=== PATIENT | female | born 1990 | race Caucasian/White ===

== ENCOUNTER 2018-01-12 11:05 | Emergency (ER) | payer MEDICAID ==
[2018-01-12 12:05] LABS: ADD MAN DIFF? NO
[2018-01-12 12:07] LABS: WHITE BLOOD COUNT 7.4 10^3/ul (4.8-10.8)
[2018-01-12 12:08] LABS: BASOPHILS % 0.4 % (0.0-2.0); EOSINOPHILS # 0.1 10^3/ul (0.0-0.5); EOSINOPHILS % 1.3 % (0.0-7.0); HEMATOCRIT 39.9 % (37.0-47.0); HEMOGLOBIN 13.4 g/dl (12.0-16.0); MEAN CORPUSCULAR HEMOGLOBIN 29.6 pg (29.0-33.0); MEAN CORPUSCULAR HGB CONC 33.6 g/dl (32.0-37.0); MEAN CORPUSCULAR VOLUME 88.3 fl (82.0-101.0); MONOCYTE # 0.7 10^3/ul (0.3-0.9); MONOCYTES % 9.3 % (0.0-11.0); NEUTROPHIL # 5.6 10^3/ul (1.6-7.5); NEUTROPHILS % 75.2 % (39.0-77.0); PLATELET COUNT 214 10^3/UL (140-415); RED BLOOD COUNT 4.52 10^6/ul (4.20-5.40); RED CELL DISTRIBUTION WIDTH 13.3 % (11.5-14.5)
[2018-01-12 12:16] LABS: ADD UMIC NO; UR ASCORBIC ACID 20 mg/dL (NEGATIVE); UR BILIRUBIN (Dip) NEGATIVE (NEGATIVE); UR BLOOD (Dip) NEGATIVE (NEGATIVE); UR CLARITY SLIGHTLY CLOUDY (CLEAR); UR COLOR YELLOW (YELLOW); UR GLUCOSE (Dip) 3+ mg/dL (NEGATIVE); UR KETONES (Dip) TRACE mg/dL (NEGATIVE); UR LEUKOCYTE ESTERASE (Dip) NEGATIVE Leu/ul (NEGATIVE); UR NITRITE (Dip) NEGATIVE (NEGATIVE); UR RBC 1 /HPF (0-5); UR SPECIFIC GRAVITY (Dip) 1.016 (1.003-1.030); UR SQUAMOUS EPITHELIAL CELL FEW /HPF (FEW); UR TOTAL PROTEIN (Dip) NEGATIVE (NEGATIVE); UR UROBILINOGEN (Dip) NEGATIVE (NEGATIVE); UR WBC 1 /HPF (0-5)
== END 2018-01-12 12:45 | disposition home or self-care (01) ==
LOC: FTE 11:05
DX: O26.892 Other specified pregnancy related conditions, second trimester (principal); R10.2 Pelvic and perineal pain; Z3A.15 15 weeks gestation of pregnancy
CPT/HCPCS: 36415; 76805; 81001; 81003; 84702; 85025; 86900; 86901; 99284-25

== ENCOUNTER 2018-05-08 12:48 | Outpatient (CLI) | payer MEDICAID ==
[2018-05-08 13:30] LABS: RUPTURE FETAL MEMBRANES NEGATIVE (NEGATIVE)
== END 2018-05-08 14:40 | disposition home or self-care (01) ==
LOC: OBT 12:48 → L-D 12:48 → OBT 14:40
DX: O60.03 Preterm labor without delivery, third trimester (principal); Z3A.32 32 weeks gestation of pregnancy
CPT/HCPCS: 76818; 84112

== ENCOUNTER 2018-06-12 13:26 | Outpatient (CLI) | payer MEDICAID ==
[2018-06-12 14:38] LABS: RUPTURE FETAL MEMBRANES NEGATIVE (NEGATIVE)
== END 2018-06-12 15:08 | disposition home or self-care (01) ==
LOC: OBT 13:26 → L-D 13:27 → OBT 15:08
DX: O42.92 Full-term premature rupture of membranes, unspecified as to length of time between rupture and onset of labor (principal); Z3A.37 37 weeks gestation of pregnancy
CPT/HCPCS: 76818; 84112

== ENCOUNTER 2018-07-02 11:07 | Inpatient (IN) | payer MEDICAID ==
[2018-07-02] MEDS: LACTATED RINGER'S 1,000 ML IV* ×2 (13:00→21:56)
[2018-07-02] MEDS ORDERED: BUTORPHANOL 1 MG INJ IV (13:00)
[2018-07-02] MEDS ORDERED: CARBOPROST 250 MCG INJ IM (13:00)
[2018-07-02] MEDS ORDERED: METHYLERGONOVINE 0.2 MG INJ IM (13:00)
[2018-07-02] MEDS ORDERED: BUTORPHANOL 2 MG INJ IV (13:00)
[2018-07-02] MEDS ORDERED: OXYTOCIN 30 UNITS/LR 500 ML IV (13:00)
[2018-07-02] MEDS ORDERED: MISOPROSTOL 200 MCG TAB PR (13:00)
[2018-07-02 13:07] LABS: ADD MAN DIFF? NO
[2018-07-02 13:10] LABS: WHITE BLOOD COUNT 6.1 10^3/ul (4.8-10.8)
[2018-07-02 13:10] LABS: BASOPHILS % 0.3 % (0.0-2.0); EOSINOPHILS # 0.1 10^3/ul (0.0-0.5); EOSINOPHILS % 1.8 % (0.0-7.0); HEMATOCRIT 41.4 % (37.0-47.0); HEMOGLOBIN 13.8 g/dl (12.0-16.0); LYMPHOCYTES # 1.2 10^3/ul (0.8-2.9); LYMPHOCYTES % 19.1 % (15.0-51.0); MEAN CORPUSCULAR HEMOGLOBIN 29.5 pg (29.0-33.0); MEAN CORPUSCULAR HGB CONC 33.3 g/dl (32.0-37.0); MEAN CORPUSCULAR VOLUME 88.5 fl (82.0-101.0); MEAN PLATELET VOLUME 12.3 fl (7.4-10.4); MONOCYTE # 0.7 10^3/ul (0.3-0.9); MONOCYTES % 11.6 % (0.0-11.0); NEUTROPHIL # 4.1 10^3/ul (1.6-7.5); NEUTROPHILS % 66.2 % (39.0-77.0); PLATELET COUNT 178 10^3/UL (140-415); RED BLOOD COUNT 4.68 10^6/ul (4.20-5.40)
[2018-07-02 13:13] LABS: PROTIME 12.2 Sec (11.9-14.9)
[2018-07-02 13:14] LABS: PARTIAL THROMBOPLASTIN TIME 29.1 Sec (23.0-35.0)
[2018-07-02] MEDS: MISOPROSTOL 50 MCG CAPSULE PO ×2 (16:46→21:16)
[2018-07-02 20:33] LABS: HEPATITIS B SURFACE ANTIGEN NEGATIVE (NEGATIVE)
[2018-07-02 21:01] LABS: RAPID PLASMA REAGIN NONREACTIVE (NR)
[2018-07-03] MEDS: MISOPROSTOL 50 MCG CAPSULE PO ×6 (01:00→21:00)
[2018-07-03] MEDS: LACTATED RINGER'S 1,000 ML IV* ×3 (06:23→19:52)
[2018-07-03] MEDS: OXYTOCIN 30 UNITS/LR 500 ML IV (16:24)
[2018-07-04] MEDS: MISOPROSTOL 50 MCG CAPSULE PO ×2 (01:00→05:00)
[2018-07-04] MEDS: LACTATED RINGER'S 1,000 ML IV* ×3 (04:07→20:47)
[2018-07-05] MEDS: OXYTOCIN 30 UNITS/LR 500 ML IV (02:57)
[2018-07-05] MEDS: LACTATED RINGER'S 1,000 ML IV* ×3 (04:51→21:12)
[2018-07-05] MEDS ORDERED: FENTAnyl 2MCG/ML-ROPIV 0.2% 100 ML (16:39)
[2018-07-05] MEDS ORDERED: NALOXONE (0.4 MG/ML) INJ IV (17:30)
[2018-07-06] MEDS: FENTAnyl 2MCG/ML-ROPIV 0.2% 100 ML BAG EPI (01:48)
[2018-07-06] MEDS: AMPICILLIN 2 GM/NS (PMX) 100 ML IV (05:10)
[2018-07-06] MEDS: LACTATED RINGER'S 1,000 ML IV* ×2 (05:10→06:54)
[2018-07-06] MEDS ORDERED: AMPICILLIN 1 GM/NS (PMX) 50 ML IV (07:30)
[2018-07-06] MEDS: AMPICILLIN 1 GM/NS (PMX) 50 ML IV (09:12)
[2018-07-06] MEDS: OXYTOCIN 30 UNITS/LR 500 ML IV ×4 (10:48→18:19)
[2018-07-06] MEDS ORDERED: OXYTOCIN 30 UNITS/LR 500 ML IV ×2 (11:00→15:00)
[2018-07-06] MEDS: MINERAL OIL LIGHT 10 ML VIAL TOP (12:25)
[2018-07-06] MEDS: LIDOCAINE 1% (MPF) 30 ML INJ INJ (12:36)
[2018-07-06] MEDS: IBUPROFEN 600 MG TAB PO ×2 (12:49→18:19)
[2018-07-06] MEDS: BENZOCAINE 20% 56 ML SPRAY TOP (14:48)
[2018-07-06] MEDS: LANOLIN 7 GM TUBE TOP (14:49)
[2018-07-06] MEDS: WITCH HAZEL/GLYCERIN PAD PR (14:49)
[2018-07-06] MEDS ORDERED: CARBOPROST 250 MCG INJ IM (15:00)
[2018-07-06] MEDS ORDERED: METHYLERGONOVINE 0.2 MG INJ IM (15:00)
[2018-07-06] MEDS ORDERED: ZOLPIDEM 5 MG TAB PO (15:00)
[2018-07-06] MEDS ORDERED: OXYCODONE/ASPIRIN (4.88/325) TAB PO ×2 (15:00)
[2018-07-06] MEDS ORDERED: MISOPROSTOL 200 MCG TAB PR (15:00)
[2018-07-06] MEDS: ACETAMINOPHEN 325 MG TAB PO (19:23)
[2018-07-06] MEDS: SENNA/DOCUSATE NA (8.6MG/50MG) TAB PO (21:03)
[2018-07-07] MEDS: IBUPROFEN 600 MG TAB PO ×5 (00:07→23:29)
[2018-07-07 07:59] LABS: ADD MAN DIFF? NO
[2018-07-07 08:02] LABS: BASOPHILS % 0.3 % (0.0-2.0); EOSINOPHILS # 0.3 10^3/ul (0.0-0.5); EOSINOPHILS % 2.2 % (0.0-7.0); HEMATOCRIT 36.9 % (37.0-47.0); HEMOGLOBIN 12.4 g/dl (12.0-16.0); LYMPHOCYTES # 1.7 10^3/ul (0.8-2.9); MEAN CORPUSCULAR HEMOGLOBIN 29.6 pg (29.0-33.0); MEAN CORPUSCULAR HGB CONC 33.6 g/dl (32.0-37.0); MEAN CORPUSCULAR VOLUME 88.1 fl (82.0-101.0); MEAN PLATELET VOLUME 11.9 fl (7.4-10.4); MONOCYTE # 1.3 10^3/ul (0.3-0.9); MONOCYTES % 10.8 % (0.0-11.0); NEUTROPHIL # 8.6 10^3/ul (1.6-7.5); PLATELET COUNT 146 10^3/UL (140-415); RED BLOOD COUNT 4.19 10^6/ul (4.20-5.40); RED CELL DISTRIBUTION WIDTH 14.2 % (11.5-14.5)
[2018-07-07] MEDS: SENNA/DOCUSATE NA (8.6MG/50MG) TAB PO ×2 (09:23→21:18)
[2018-07-08] MEDS: IBUPROFEN 600 MG TAB PO ×3 (05:28→18:00)
[2018-07-08] MEDS: SENNA/DOCUSATE NA (8.6MG/50MG) TAB PO (09:00)
[2018-07-08] MEDS: DIPHTH/TET/ACEL PERTUSS (ADULT) 0.5 ML VIAL IM* (11:46)
== END 2018-07-08 18:45 | disposition home or self-care (01) | DRG 806 ==
LOC: PP1 07-06 13:55 → L-D 11:07
PROVIDERS: Obstetrics & Gynecology
PROC: 10E0XZZ Delivery of Products of Conception, External Approach (ICD-10-PCS; principal; 2018-07-06)
PROC: 0UQMXZZ Repair Vulva, External Approach (ICD-10-PCS; 2018-07-06)
PROC: 3E033VJ Introduction of Other Hormone into Peripheral Vein, Percutaneous Approach (ICD-10-PCS; 2018-07-06)
DX: O48.0 Post-term pregnancy (principal); O71.4 Obstetric high vaginal laceration alone; O71.82 Other specified trauma to perineum and vulva; Z3A.40 40 weeks gestation of pregnancy; Z37.0 Single live birth
CPT/HCPCS: 62319; 76815; 85025; 85610; 85730; 86592; 86850; 86900; 86901; 87340; 90715; 99464

== ENCOUNTER 2019-05-22 11:33 | Emergency (ER) | payer MEDICAID ==
[2019-05-22 12:57] LABS: ADD MAN DIFF? NO
[2019-05-22 13:00] LABS: BASOPHILS % 0.3 % (0.0-2.0); EOSINOPHILS # 0.1 10^3/ul (0.0-0.5); EOSINOPHILS % 1.4 % (0.0-7.0); HEMATOCRIT 44.3 % (37.0-47.0); HEMOGLOBIN 14.1 g/dl (12.0-16.0); LYMPHOCYTES # 1.3 10^3/ul (0.8-2.9); LYMPHOCYTES % 20.8 % (15.0-51.0); MEAN CORPUSCULAR HEMOGLOBIN 28.5 pg (29.0-33.0); MEAN CORPUSCULAR HGB CONC 31.8 g/dl (32.0-37.0); MEAN CORPUSCULAR VOLUME 89.5 fl (82.0-101.0); MEAN PLATELET VOLUME 10.2 fl (7.4-10.4); MONOCYTE # 0.7 10^3/ul (0.3-0.9); MONOCYTES % 11.8 % (0.0-11.0); NEUTROPHIL # 4.1 10^3/ul (1.6-7.5); NEUTROPHILS % 65.4 % (39.0-77.0); PLATELET COUNT 292 10^3/UL (140-415); RED BLOOD COUNT 4.95 10^6/ul (4.20-5.40)
[2019-05-22 13:00] LABS: WHITE BLOOD COUNT 6.3 10^3/ul (4.8-10.8)
[2019-05-22 13:25] LABS: ANION GAP 9 (5-13); BLOOD UREA NITROGEN 9 mg/dl (7-20); CALCIUM 9.6 mg/dl (8.4-10.2); CARBON DIOXIDE 25 mmol/L (21-31); CHLORIDE 105 mmol/L (97-110); CREATININE 0.63 mg/dl (0.44-1.00); Estimated GFR > 60 mL/min (>60); GLUCOSE 89 mg/dl (70-220); POTASSIUM 4.2 mmol/L (3.5-5.1); SODIUM 139 mmol/L (135-144)
== END 2019-05-22 13:48 | disposition home or self-care (01) ==
LOC: E/R 11:33
DX: R55 Syncope and collapse (principal)
CPT/HCPCS: 36415; 80048; 81025; 85025; 93005; 99284-25